=== PATIENT | male | born 1965 | race Caucasian/White ===

== ENCOUNTER 2019-02-09 05:03 | Emergency (ER) | payer MEDICAID ==
[2019-02-09 06:14] LABS: ALT (SGPT) 9 U/L (8-55); AST (SGOT) 9 U/L (5-34); Albumin 3.5 g/dL (3.5-5.0); Alkaline Phosphatase 125 U/L (40-150); Anion Gap 12 mmol/L (10-20); BUN (Urea Nitrogen) 6 mg/dL (8.4-25.7); Bilirubin, Total 0.3 mg/dL (0.2-1.2); CK (CPK) 35 U/L (30-200); Calc. Creatinine Clearance 0 mL/min (70-130); Calcium 8.8 mg/dL (7.8-10.44); Carbon Dioxide 34 mmol/L (22-29); Chloride 92 mmol/L (98-107); Estimated GFR-MDRD Greater than 90; Globulin 2.6 g/dL (2.4-3.5); Lipase 39 U/L (8-78); Potassium 3.7 mmol/L (3.5-5.1); Protein, Total 6.1 g/dL (6.0-8.3); Sodium 134 mmol/L (136-145)
[2019-02-09 06:20] LABS: #Eosinphils 0.1 thou/uL (0.0-0.7); #Lymphocytes 2.1 thou/uL (1.20-3.40); #Monocytes 0.6 thou/uL (0.11-0.59); #Neutrophils 2.4 thou/uL (1.40-6.50); %Eosinophils 1.7 % (0.0-10.0); %Lymphocytes 39.9 % (21.0-51.0); %Neutrophils 46.5 % (42.0-75.0); Hemoglobin 13.4 g/dL (14.0-18.0); Mean Corpuscular HGB CONC 32.6 g/dL (32.0-36.0); Mean Corpuscular Hemoglobin 30.4 pg (27.0-31.0); Mean Corpuscular Volume 93.1 fL (78.0-98.0); Mean Platelet Volume 7.4 fL (7.4-10.4); Platelet Count 153 thou/uL (130-400); RBC Distribution Width 11.9 % (11.5-14.5); Red Blood Cell (RBC) Count 4.41 mill/uL (4.70-6.10); White Blood Cell (WBC) Count 5.1 thou/uL (4.8-10.8)
[2019-02-09 06:22] LABS: Glucose 670 mg/dL (70-105)
[2019-02-09] MEDS ORDERED: Insulin Regular 300 UNITS/3 ML VIAL ONE (06:33)
[2019-02-09] MEDS ORDERED: Aspirin 325 MG TAB ONE (06:39)
[2019-02-09] MEDS ORDERED: Enoxaparin Sodium 40 MG/0.4 ML SYRINGE ONE (06:55)
[2019-02-09] MEDS ORDERED: Enoxaparin Sodium 30 MG/0.3 ML SYRINGE ONE (06:55)
--- NOTE | 2019-02-09 07:34 | CT ---
CT HEAD NONCONTRAST: COMPARISON: 02/12/2018. INDICATION: Left arm numbness. FINDINGS: There is no acute intracranial hemorrhage or mass effect or midline shift. Mild prominence of the ve ntricular system is related to parenchymal volume loss. There is a stable lacunar infarction of the right thalamus. Punctate hypodensity of the left thalamus may also be related to lacunar infarction. Mild chronic ischemic disease of the cerebral white matter is present. Bilateral mastoid air cell opacification is similar-appearing. IMPRESSION: 1. No acute intracranial hemorrhage or mass effect. 2. Chronic right thalamic lacunar infarction, and punctate hypodensity of the left thalamus which ma y relate to an additional lacunar infarction. Findings are superimposed upon microvascular ischemic disease. POS: ADONIS
--- NOTE | 2019-02-09 08:18 | RAD ---
Exam: Chest one view HISTORY:Chest pain. Comparison: 02/12/2018 FINDINGS: Cardiac silhouette: Normal Pulmonary vessels: Normal Costophrenic angles: Clear LUNGS: No masses or consolidation. Lungs are hyperinflated. Pneumothorax: None Osseous abnormalities: Old right rib fractures are present. IMPRESSION: No acute cardiopulmonary process.
== END 2019-02-09 07:06 | disposition short-term general hospital (02) ==
LOC: MADERS 05:03
DX: R07.89 Other chest pain (principal); E11.65 Type 2 diabetes mellitus with hyperglycemia; F17.210 Nicotine dependence, cigarettes, uncomplicated
CPT/HCPCS: 70450; 71045; 80053; 82010; 82550; 83690; 84484; 85025; 93005; 94760; 96372; 96374; J1650; J1815

== ENCOUNTER 2019-07-30 11:12 | Emergency (ER) | payer OTHER ==
[~2019-07-30 11:12] MED LIST: Iopamidol 370 76% 150 ML VIAL FS ONE
[2019-07-30 11:26] LABS: #Basophils 0.1 thou/uL (0.0-0.2); #Eosinphils 0.2 thou/uL (0.0-0.7); #Lymphocytes 2.3 thou/uL (1.20-3.40); #Monocytes 0.7 thou/uL (0.11-0.59); #Neutrophils 3.4 thou/uL (1.40-6.50); %Basophils 1.1 % (0.0-1.0); %Eosinophils 2.9 % (0.0-10.0); %Lymphocytes 34.5 % (21.0-51.0); %Monocytes 9.8 % (0.0-10.0); %Neutrophils 51.7 % (42.0-75.0); Hemoglobin 12.7 g/dL (14.0-18.0); Mean Corpuscular HGB CONC 31.2 g/dL (32.0-36.0); Mean Corpuscular Hemoglobin 29.5 pg (27.0-31.0); Mean Corpuscular Volume 94.5 fL (78.0-98.0); Platelet Count 180 thou/uL (130-400); RBC Distribution Width 12.3 % (11.5-14.5); Red Blood Cell (RBC) Count 4.31 mill/uL (4.70-6.10); White Blood Cell (WBC) Count 6.6 thou/uL (4.8-10.8)
[2019-07-30 11:30] LABS: PTT 27.4 SEC (22.9-36.1); Prothrombin Time 12.8 SEC (12.0-14.7)
[2019-07-30 11:40] LABS: ALT (SGPT) 18 U/L (8-55); AST (SGOT) 11 U/L (5-34); Albumin 3.7 g/dL (3.5-5.0); Alkaline Phosphatase 84 U/L (40-110); Anion Gap 13 mmol/L (10-20); BUN (Urea Nitrogen) 12 mg/dL (8.4-25.7); Bilirubin, Total 0.3 mg/dL (0.2-1.2); Calc. Creatinine Clearance 0 mL/min (70-130); Calcium 9.3 mg/dL (7.8-10.44); Carbon Dioxide 28 mmol/L (22-29); Chloride 100 mmol/L (98-107); Estimated GFR-MDRD Greater than 90; Globulin 2.8 g/dL (2.4-3.5); Glucose 131 mg/dL (70-105); Potassium 3.9 mmol/L (3.5-5.1); Protein, Total 6.5 g/dL (6.0-8.3); Sodium 137 mmol/L (136-145)
[2019-07-30 11:43] LABS: CKMB 1.8 ng/mL (0-6.6); Troponin I Less than 0.010 ng/mL (< 0.028)
--- NOTE | 2019-07-30 11:45 | CT ---
CT BRAIN WITHOUT CONTRAST: HISTORY: Slurred speech. COMPARISON: 02/09/2019 FINDINGS: Old lacunar infarctions in the thalami are again seen. There are changes of chronic small vessel isch emic disease. The ventricular size is appropriate and the basilar cisterns are patent. No evidence of acute infarct, hemorrhage, midline shift or abnormal extraaxial fluid collections is s een. The bony calvarium is intact. The visualized paranasal sinuses are well aerated. There is incomp lete opacification of the mastoid air cells. IMPRESSION: No CT evidence of acute intracranial process. Discussed over the telephone with ER physician, Dr. Darrius Bledsoe at 11:33 a.m. CODE RIA POS: CHRISTEL
--- NOTE | 2019-07-30 12:28 | CT ---
CT angiogram head CT angiogram neck: 07/30/2019 COMPARISON: None HISTORY: Slurred speech TECHNIQUE: Axial CT imaging obtained at 1.25 mm intervals from the lung apices through the vertex wit h IV contrast using CT angiogram protocol. Coronal and sagittal 3-D reformatted imaging obtained. FINDINGS: The imaged paranasal sinuses and mastoid air cells demonstrate partial inferior opacificati on of the mastoid air cells on the right. Incompletely assessed centrilobular emphysematous changes are noted within bilateral lung apices. No aerodigestive tract abnormality is evident on this examination. No lymphadenopathy is noted within the neck. Proximal great vessels are not fully imaged on this exam. The origin of the left subclavian artery, l eft common carotid artery, and innominate artery are not imaged. Origin of right subclavian and right common carotid artery unremarkable. Mild stenosis at origin of left vertebral artery. Right calin tebral artery origin unremarkable. Vertebral arteries demonstrate no acute abnormality. The basilar artery and its branches appear patent. There is mild stenosis of the proximal [employer] bilater ally, left greater than right. No saccular aneurysm, high-grade stenosis, or vascular occlusion is seen involving the posterior circulation. Imaged portions of bilateral common carotid arteries demonstrate no hemodynamically significant steno sis. There is atherosclerotic calcification involving the distal CCA and proximal ICA bilaterally. On the basis of NASCET criteria there is no hemodynamically significant stenosis seen involving the i nternal or common carotid artery on either side. Secondary to timing of the contrast bolus, the distal cervical ICA is not optimally opacified. There is a mild focal area of stenosis involving the distal cervical left ICA on the basis of partially calcified plaque. The petrous segment of bilateral internal carotid arteries appears patent. The cave rnous ICA appears patent bilaterally with bilateral atherosclerotic calcification. The M1 segment appears patent bilaterally. The bilateral A1 segments, the region of the anterior comm unicating artery, and the distal EDWINA branches appear intact. The bifurcation of the MCA appears grossly unremarkable and distal MCA branches appear grossly unrema rkable bilaterally. No central arterial occlusion, high-grade stenosis, or saccular aneurysm is evident involving the anterior circulation on either side. Review of the osseous structures demonstrates multilevel cervical spine degenerative change, most pro minent at the C6-7 level as well as at the atlantoaxial interspace. No worrisome lytic or blastic bone lesions are identified. IMPRESSION: No hemodynamically significant stenosis involving the arterial structures of the neck. No central arterial occlusion involving the intracranial arterial structures. Numerous additional findings as detailed above.
== END 2019-07-30 13:02 | disposition short-term general hospital (02) ==
LOC: MADERS 11:12
DX: I63.9 Cerebral infarction, unspecified (principal); R47.81 Slurred speech; G45.9 Transient cerebral ischemic attack, unspecified; I10 Essential (primary) hypertension
CPT/HCPCS: 36415; 36416; 70450; 70496; 70498; 80053; 82553; 84484; 85025; 85610; 85730